=== PATIENT | male | born 1985 | race Caucasian/White ===

== ENCOUNTER 2017-02-11 07:45 | Inpatient (IN) | payer OTHER ==
--- NOTE | ~2017-02-11 | PA ---
Unit #: [id number] #: [id number] Patient: MAUREEN NANCE III [id number] [facility] [address] [place] [address] [id number] MR#: [id number] NAME: MAUREEN NANCE III ROOM: [facility] Age: 32 Sex: M Admission Date: 02/11/2017 : 1985 Date of Assessment: 02/11/2017 Attending Physician: Leon De La Fuente M.D. Admitting Physician: Leon De La Fuente M.D. Primary Care Physician: Primary Care Physician No PSYCHIATRIC ASSESSMENT INFORMANTS The patient reliability, fair informant and chart reliability, good. CHIEF COMPLAINT Psychosis, hearing voices, and thoughts of harming self. HISTORY OF PRESENT ILLNESS Mr. Maureen Nance is a 32-year-old male, who was recently discharged, admitted with hearing voices and suicidal thoughts. The patient reported that the voices do not go away. The patient reported that he fears at his life because he thinks that the people are after him. The patient reported that he thinks about committing suicide with a gun. The patient reported that he can get a gun. The patient denied any use of drugs, but history of methamphetamine abuse. Reported feeling sad, depressed, suicidal ideation, and not sleeping. Needing inpatient admission at this time for psychiatric stabilization. PAST PSYCHIATRIC HISTORY Remarkable [facility], 01/06/2017, and 12/09/2016. FAMILY HISTORY AND SOCIAL HISTORY The patient's family history is unremarkable. No history of any abuse. No history of any legal problem. MEDICAL HISTORY Unremarkable. The patient was on Suboxone. No chronic medical condition. Musculoskeletal; muscle strength and tone, no atrophy or abnormal movement. Gait normal. MEDICATION HISTORY The patient is noncompliant with medication. ALLERGIES No known drug allergies. SUBSTANCE ABUSE HISTORY History of amphetamine abuse. The patient reported tobacco use, age of onset 7; opioid, age of onset 30; and amphetamine, age of onset 27. REVIEW OF SYSTEMS HEENT: Eyes, clear. Ears, nose, mouth, and throat; clear. CARDIOVASCULAR: Unremarkable. Unit #: [id number] #: [id number] Patient: MAUREEN NANCE III RESPIRATORY: Unremarkable. GI: Unremarkable. : Unremarkable. SKIN: Unremarkable. LYMPH NODE: Unremarkable. NEUROLOGIC: Unremarkable. ENDOCRINE: Unremarkable. HEMATOLOGIC: Unremarkable. ALLERGIC/IMMUNOLOGIC: Unremarkable. MUSCULOSKELETAL: Muscle strength and tone, no atrophy or abnormal movement. Gait normal. MENTAL STATUS EXAMINATION CONSTITUTIONAL: Measurement of vital signs; temperature 98.4, heart rate 80, respiratory rate 18, oxygen saturation 99%, and blood pressure 110/80. Height 5 feet 8 inches and weight 194 pounds. GENERAL APPEARANCE: The patient disheveled. Poor hygiene and grooming. No facial deformity noted. MUSCULOSKELETAL: Please see above. PSYCHIATRIC EXAMINATION Description of speech; rapid, disorganized, guarded, and paranoid. Description of thought process, circumstantial. Description of association, guarded and paranoid. Description of abnormal psychotic thinking; guarded, paranoid, hallucination, and voices telling him to harm himself. Description of the patient's judgment: Concerning everyday activity, poor. Social situation, poor. Concerning psychiatric condition, poor. Complete mental status examination; oriented in time, place, and person. Recent and remote memory, fair. Attention span and concentration, fair. Language, able to name object and repeat phrases. Fund of knowledge, aware of current event and passive vocabulary intact. Mood and affect, sad and dysphoric. Insight and judgment, fair to poor. Complete mental status examination; oriented in time, place, and person. Attention span and concentration, fair. Language, fair. Mood and affect, sad and dysphoric. Vocabulary, fair. Insight and judgment, fair to slightly impaired. ASSETS AND LIABILITIES Assets, the patient is articulate and able to take care of his ADL. Liability; history of depression, suicidal ideation, and hearing voices. ADMITTING DIAGNOSES Psychiatric: Psychosis, not otherwise specified, F29.0; mood disorder, not otherwise specified; history of bipolar mood disorder; and amphetamine use disorder, moderate. Secondary diagnosis: Deferred. Medical diagnoses: History of lower extremity compartment syndrome, status post fasciotomy, history of seizure disorder, cardiomyopathy, and hypertension. Stressors: Psychosocial stressors. PSYCHIATRIC PLAN AND TREATMENT GOAL AND DISCHARGE PLAN 1. Advised to admit the patient on the inpatient unit. Provide safe, Unit #: [id number] #: [id number] Patient: MAUREEN NANCE III supportive, and structured environment. 2. Ordered labs, UA and UDS. 3. Precaution for self-harm and psychosis. 4. The patient to start with current medication at this time. If needed, consider further adjustment of medication. TREATMENT GOAL To attain euthymic mood, gain insight into his problem, and learn coping skills. DISCHARGE PLAN Plan to stabilize the patient and consider followup in outpatient program ESTIMATED LENGTH OF STAY 5 days. Dictated by... Leon De La Fuente M.D. INES/kailyn TD: 02/11/2017 15:25 JOB #: [id number] PSYCHIATRIC ASSESSMENT Page 1 of 1 X Leon De La Fuente MD X PSYCHIATRIC ASSESSMENT
--- NOTE | ~2017-02-11 | PN ---
Unit #: [id number] #: [id number] Patient: MAUREEN NANCE III [id number] [facility] [address] [place] [address] [id number] MR#: [id number] NAME: MAUREEN NANCE III ROOM: [facility] Age: 32 Sex: M Admission Date: 02/11/2017 : 1985 Attending Physician: Leon De La Fuente M.D. Admitting Physician: Leon De La Fuente M.D. Primary Care Physician: Primary Care Physician Elizabeth OSMAN NOTES DATE OF SERVICE 02/12/2017 DISCUSSION Maureen Nance is a 32-year-old male seen on 02/12/2017. The patient interviewed, chart reviewed. Obtained information from nursing staff. The patient was pleasant, cooperative, redirectable. Maintained safe behavior. No aggression. Able to take care of his ADL. The patient's behavior described as argumentative, impulsive, rude, threatening, yelling. The patient reported when he goes home he does not take any medication. That is why he was admitted and wanted to go to a long-term program. Complete Review of Systems: Unremarkable. MENTAL STATUS EXAMINATION General Appearance: The patient dressed casually. Attention span, concentration: Fair. Oriented in place and person. Mood and affect labile. Speech: Monotone. Thought process: [place]. The patient denied any thoughts of harming self or others. Recent and remote memory: Poor. Insight and judgment: Poor. DIAGNOSES 1. Psychosis not otherwise specified. 2. Mood disorder not otherwise specified. ASSESSMENT/PLAN Advised to continue with current medication and therapeutic protocol. If needed, consider further adjustment of medication. Dictated by... Kin Finch/osiris TD: 02/13/2017 09:23 JOB #: [id number] Unit #: [id number] #: [id number] Patient: MAUREEN NANCE III [facility] PROGRESS NOTES Page 1 of 1 X Leon De La Fuente MD PROGRESS NOTE
--- NOTE | ~2017-02-11 | HP ---
Unit #: [id number] #: [id number] Patient: MAUREEN NANCE III [id number] [facility] [address] [place] [address] [id number] MR#: [id number] NAME: MAUREEN NANCE III ROOM: [facility] Age: 32 Sex: M Admission Date: 02/11/2017 : 1985 Attending Physician: Leon De La Fuente M.D. Admitting Physician: eLon De La Fuente M.D. Primary Care Physician: Primary Care Physician No HISTORY AND PHYSICAL Maureen is a 32 year admitted for his continued polysubstance abuse. He has had numerous admissions to this facility for the same. Patient was seen and H and P dated 01/14/17 was reviewed. This is current. No changes. Please see H and P dated 01/14/17. Dictated by... Sandra Ann P.A.-C. for [place]/maylin TD: 02/11/2017 20:19 JOB #: [id number] HISTORY AND PHYSICAL Page 1 of 1 X Sandra Ann HISTORY AND PHYSICAL
--- NOTE | ~2017-02-11 | DS ---
Unit #: [id number] #: [id number] Patient: MAUREEN NANCE III [id number] [facility] [address] [place] [address] [id number] MR#: [id number] NAME: MAUREEN NANCE III ROOM: [facility] Age: 32 Sex: M Admission Date: 02/11/2017 : 1985 Discharge Date: 02/13/2017 Attending Physician: Leon De La Fuente M.D. Primary Care Physician: Primary Care Physician No DISCHARGE SUMMARY REASON FOR ADMISSION Aggression and psychosis. DIAGNOSTIC STUDIES LABORATORY RESULTS: Unremarkable. HOSPITAL COURSE The patient was admitted to inpatient unit on 02/11/2017 and discharged on 02/13/2017. The patient was treated with behavior management, expressive therapy, medication management, psychoeducation. The patient responded well with the above modalities of treatment. Subsequently, the patient was discharged with a plan to follow up in outpatient program. DISCHARGE MEDICATIONS Depakote 500 mg at bedtime for mood stabilization, Zyprexa 20 mg at bedtime for psychosis. DISCHARGE DIAGNOSES Psychiatric: 1. Psychosis, not otherwise specified, F29.0. 2. Mood disorder, not otherwise specified. 3. Rule out bipolar mood disorder. 4. Amphetamine use disorder, moderate. Secondary diagnosis: Deferred. Medical diagnoses: History of lower extremity compartment syndrome, status post fasciotomy; history of seizure disorder; cardiomyopathy; and hypertension. Stressors: Psychosocial stressors. DISCHARGE INSTRUCTIONS The patient to follow up in outpatient clinic as per certified social workers in health care. CONDITION ON DISCHARGE The patient was pleasant and cooperative. Denied any psychotic symptom or any suicidal ideation. PROGNOSIS Guarded. DIET AND ACTIVITY As tolerated. Unit #: [id number] #: [id number] Patient: MAUREEN NANCE III Dictated by... Kin Finch/kailyn TD: 02/14/2017 02:05 JOB #: [id number] DISCHARGE SUMMARY Page 1 of 1 X Leon De La Fuente MD X DISCHARGE SUMMARY
[2017-02-12 09:36] LABS: BASOPHIL% 0.9 % (0-2.5); EOSINOPHIL# 0.4 X10e3 (0-0.7); EOSINOPHIL% 6.4 % (0.0-7.0); HEMATOCRIT 39.9 % (38.0-50.0); HEMOGLOBIN 13.9 gm/dL (13.0-16.0); LYMPHOCYTE# 2.3 X10e3 (1.0-3.5); LYMPHOCYTE% 40.4 % (17.0-45.0); MEAN CELL VOLUME 82.1 FL (83-96); MEAN CORPUSCULAR HEMOGLOBIN 28.6 PG (28-34); MEAN CORPUSCULAR HGB CONC 34.8 g/dL (30-36); MEAN PLATELET VOLUME 7.3 FL (6.5-11.5); MONOCYTE# 0.5 X10e3 (0-1.0); MONOCYTE% 9.1 % (3.0-12.0); NEUTROPHIL# 2.4 X10e3 (1.5-7.1); NEUTROPHIL% 43.2 % (40-75); PLATELET COUNT 244 X10e3 (140-420); RED BLOOD COUNT 4.87 X10e (3.90-5.60); RED CELL DISTRIBUTION WIDTH 13.2 % (11.0-15.5); WHITE BLOOD COUNT 5.6 X10e3 (4.0-10.5)
[2017-02-12 09:42] LABS: DIFF IND NO
[2017-02-12 09:59] LABS: ALBUMIN SERUM 4.3 g/dL (3.5-5.0); BUN/CREATININE RATIO 27.5; CALCIUM SERUM 9.7 mg/dL (8.4-10.2); CREATININE SERUM 0.8 mg/dL (0.6-1.4); GLOM FILT RATE Estimated 117.4 mL/min (>60); POTASSIUM 4.3 mmol/L (3.5-5.1); PROTEIN TOTAL SERUM 7.2 g/dL (6.0-8.3)
== END 2017-02-13 17:01 | disposition home or self-care (01) | DRG 897 ==
LOC: POF 07:45 → P1S 11:11
PROVIDERS: Psychiatry & Neurology Psychiatry
DX: F15.10 Other stimulant abuse, uncomplicated (principal); I42.9 Cardiomyopathy, unspecified; F17.210 Nicotine dependence, cigarettes, uncomplicated; Z91.14 Patient's other noncompliance with medication regimen; F29 Unspecified psychosis not due to a substance or known physiological condition; F39 Unspecified mood [affective] disorder; G40.909 Epilepsy, unspecified, not intractable, without status epilepticus; I10 Essential (primary) hypertension
CPT/HCPCS: 80053; 84439; 84443; 85025